=== PATIENT | female | born 1980 | race Caucasian/White ===

== ENCOUNTER 2018-02-08 12:49 | Emergency (ER) | payer MEDICAID ==
[~2018-02-08] VITALS: Ht 172.7 cm; Wt 70.5 kg
[2018-02-08] MEDS ORDERED: normal saline 1000ML IV soln IVB ONE (14:45)
[2018-02-08] MEDS ORDERED: ketorolac tromethamine 15mg/ml inj. IV ONE (14:45)
[2018-02-08] MEDS ORDERED: morphine 4 MG/ML inj SYRINge IV ONE (14:45)
[2018-02-08] MEDS ORDERED: CYCL-1 PO (15:54)
[2018-02-08 16:09] VITALS: BP 106/55
== END 2018-02-08 16:11 | disposition home or self-care (01) ==
LOC: ER 12:50
DX: M79.605 Pain in left leg (principal); F12.90 Cannabis use, unspecified, uncomplicated; Z87.891 Personal history of nicotine dependence
CPT/HCPCS: 93971; 96374; 96375; 99284; J1885; J2270; J7030

== ENCOUNTER 2018-08-22 01:07 | Emergency (ER) | payer MEDICAID ==
[~2018-08-22] VITALS: Ht 172.7 cm; Wt 80.0 kg
[~2018-08-22 01:07] MED LIST: CYCL-1 PO
[2018-08-22] MEDS ORDERED: LIDOcaine 1%/PF 5ML 10 MG/ML VIAL IJ ONE (02:00)
[2018-08-22] MEDS ORDERED: triamcinolone acetonide 40mg/ml inj IJ ONE (02:00)
--- NOTE | 2018-08-22 03:39 | NUR ---
Pt walking to xray with tech
[2018-08-22 03:57] LABS: URINE AMPHETAMINE SCREEN POSITIVE (Neg); URINE BARBITUATE SCREEN NEGATIVE (Neg); URINE BENZODIAZEPINES SCREEN NEGATIVE (Neg); URINE CANNABINOID SCREEN POSITIVE (Neg); URINE COCAINE SCREEN NEGATIVE (Neg); URINE METHADONE SCREEN NEGATIVE (Neg); URINE OPIATE SCREEN POSITIVE (Neg); URINE PHENCYCLIDINE SCREEN NEGATIVE (Neg)
[2018-08-22 04:40] VITALS: BP 136/76
== END 2018-08-22 05:17 | disposition home or self-care (01) ==
LOC: ER 01:08
DX: M25.512 Pain in left shoulder (principal); F12.90 Cannabis use, unspecified, uncomplicated
CPT/HCPCS: 20611; 73030; 80305; 93971; 99284; J2001; J3301; 20610

== ENCOUNTER 2019-05-10 19:31 | Emergency (ER) | payer MEDICAID ==
[~2019-05-10] VITALS: Ht 172.7 cm; Wt 79.5 kg
[2019-05-10] MEDS ORDERED: normal saline 1000ML IV soln IVB ONE (20:20)
[2019-05-10 20:23] LABS: CLARITY,URINE SLIGHTLY CLOUDY (Clear); COLOR,URINE YELLOW (Yellow); GLUCOSE, URINE NEGATIVE (Neg); KETONES,URINE TRACE mg/dl (Neg); LEUKOCYTE ESTERASE ,URINE SMALL (Neg); NITRITES, URINE NEGATIVE (Neg); OCCULT BLOOD,URINE LARGE (Neg); PH,URINE 7.5 (4.8-8.0); PROTEIN,URINE NEGATIVE (Neg); UROBILINOGEN,URINE 0.2 E.U/dL (0.2-1.0)
[2019-05-10] MEDS ORDERED: ondansetron/PF 4mg/2ml inj IV ONE (20:25)
[2019-05-10] MEDS ORDERED: ketorolac trometh. 30mg/ml inj. IV ONE (20:25)
[2019-05-10 20:26] LABS: UA COLLECTION TYPE CLN CATCH MIDSTREAM
[2019-05-10 20:26] LABS: BASOPHILS % (AUTO) 0.2 % (0-1); EOSINOPHILS % (AUTO) 0.2 % (0-6); HEMATOCRIT 39.2 % (35.0-45.0); HEMOGLOBIN 13.9 g/dl (12.0-16.0); LYMPHOCYTES # (AUTO) 0.6 X10'3 (1.1-4.8); MEAN CORPUSCULAR HEMOGLOBIN 35.2 PG (27.0-31.0); MEAN CORPUSCULAR HGB CONC 35.5 g/dL (33.0-36.5); MEAN CORPUSCULAR VOLUME 99.2 FL (78-98); MEAN PLATELET VOLUME 7.9 FL (7.4-10.4); NEUTROPHILS # (AUTO) 14.4 X10'3 (1.8-7.7); NEUTROPHILS % (AUTO) 89.6 % (42-75); PLATELET COUNT 237 X10'3 (140-440); RED BLOOD COUNT 3.95 X10'6 (4.20-5.60); RED CELL DISTRIBUTION WIDTH 12.7 % (11.5-14.5); WHITE BLOOD COUNT 16.1 X10'3 (4.5-11.0)
[2019-05-10 20:30] LABS: BACTERIA,URINE FEW /HPF (Neg); RBC,URINE NONE SEEN /HPF (0-2)
[2019-05-10 20:31] LABS: SQUAMOUS EPITHELIAL CELL,UR FEW /LPF (FEW); TRICHOMONAS,URINE MOD /HPF (NEGATIVE)
[2019-05-10 20:35] LABS: ALANINE AMINOTRANSFERASE 18 U/L (12-78); ALBUMIN 3.5 G/DL (3.4-5.0); ALBUMIN/GLOBULIN RATIO 0.8 (1.1-1.5); ALKALINE PHOSPHATASE 80 IU/L (46-116); ANION GAP 9 (8-16); ASPARTATE AMINO TRANSFERASE 11 U/L (10-37); BILIRUBIN,TOTAL 1.4 MG/DL (0.1-1.0); BLOOD UREA NITROGEN 7 MG/DL (7-18); BUN/CREATININE RATIO 9.7 (6.6-38.0); CALCIUM 8.9 MG/DL (8.5-10.1); CHLORIDE 99 MMOL/L (99-107); CREATININE 0.72 MG/DL (0.40-0.90); GLUCOSE 137 MG/DL (70-104); POTASSIUM 3.7 MMOL/L (3.5-5.1); SODIUM 137 MMOL/L (135-145); TOTAL CARBON DIOXIDE 28.8 MMOL/L (24-32); TOTAL PROTEIN 7.7 G/DL (6.4-8.2); eGFR > 90 ML/MIN
[2019-05-10 20:36] LABS: URINE AMPHETAMINE SCREEN POSITIVE (Neg); URINE BARBITUATE SCREEN NEGATIVE (Neg); URINE BENZODIAZEPINES SCREEN NEGATIVE (Neg); URINE CANNABINOID SCREEN POSITIVE (Neg); URINE COCAINE SCREEN NEGATIVE (Neg); URINE METHADONE SCREEN NEGATIVE (Neg); URINE OPIATE SCREEN NEGATIVE (Neg); URINE PHENCYCLIDINE SCREEN NEGATIVE (Neg)
[2019-05-10] MEDS ORDERED: CefTRIAXone/D5W-Rocephin 1gm 50 ML IV ONE (20:45)
[2019-05-10] MEDS ORDERED: CIPR-230 PO (21:48)
[2019-05-10 22:01] VITALS: BP 98/50
== END 2019-05-10 22:03 | disposition home or self-care (01) ==
LOC: ER 19:33
DX: N39.0 Urinary tract infection, site not specified (principal); F12.90 Cannabis use, unspecified, uncomplicated
CPT/HCPCS: 36415; 74176; 80053; 80305; 81001; 83605; 84145; 85025; 87040; 87088; 96365; 96375; 99284; J0696; J1885; J2405; J7030

== ENCOUNTER 2024-02-03 16:34 | Emergency (ER) | payer MEDICAID ==
[~2024-02-03] VITALS: Ht 172.7 cm; Wt 86.6 kg
[2024-02-03] MEDS: morphine 4 MG/ML inj SYRINge IV ONE ×2 (17:36→18:00)
[2024-02-03] MEDS: ketorolac trometh. 30mg/ml inj. IV ONE (18:00)
[2024-02-03 18:18] LABS: BASOPHILS % (AUTO) 0.2 % (0-1); EOSINOPHILS # (AUTO) 0.1 X10'3 (0-0.9); EOSINOPHILS % (AUTO) 1.1 % (0-6); HEMATOCRIT 39.8 % (35.0-45.0); HEMOGLOBIN 13.8 g/dl (12.0-16.0); LYMPHOCYTES # (AUTO) 0.8 X10'3 (1.1-4.8); LYMPHOCYTES % (AUTO) 7.4 % (21-51); MEAN CORPUSCULAR HEMOGLOBIN 33.3 PG (27.0-31.0); MEAN CORPUSCULAR HGB CONC 34.6 g/dL (33.0-36.5); MEAN CORPUSCULAR VOLUME 96.4 FL (78-98); MEAN PLATELET VOLUME 8.4 FL (7.4-10.4); MONOCYTES # (AUTO) 0.7 X10'3 (0-0.9); MONOCYTES % (AUTO) 6.3 % (2-12); NEUTROPHILS # (AUTO) 9.7 X10'3 (1.8-7.7); PLATELET COUNT 227 X10'3 (140-440); RED BLOOD COUNT 4.13 X10'6 (4.20-5.60); RED CELL DISTRIBUTION WIDTH 12.8 % (11.5-14.5); WHITE BLOOD COUNT 11.5 X10'3 (4.5-11.0)
[2024-02-03 18:24] LABS: BILIRUBIN,URINE NEGATIVE (Neg); CLARITY,URINE CLEAR (Clear); COLOR,URINE YELLOW (Yellow); GLUCOSE, URINE NEGATIVE (Neg); KETONES,URINE TRACE mg/dl (Neg); LEUKOCYTE ESTERASE ,URINE NEGATIVE (Neg); NITRITES, URINE NEGATIVE (Neg); OCCULT BLOOD,URINE NEGATIVE (Neg); PROTEIN,URINE NEGATIVE (Neg); UROBILINOGEN,URINE 0.2 E.U/dL (0.2-1.0)
[2024-02-03 18:32] LABS: UA COLLECTION TYPE NON-SPECIFIED
[2024-02-03] MEDS: amox tr/potassium clavulanate 875/125mg TAB PO ONE (19:46)
[2024-02-03] MEDS: TETanus/Pertussis (Acell)/Diphther VAC/PF (Tdap-Adult) 0.5ml syringe IMVAC ONE (19:47)
[2024-02-03] MEDS ORDERED: OXYC-658 PO (20:03)
[2024-02-03] MEDS ORDERED: AMOX-580 PO (20:05)
[2024-02-03 20:24] VITALS: BP 117/58; PULSE 96; RESP 19; TEMP 97.5; O2SAT 99
== END 2024-02-03 20:32 | disposition home or self-care (01) ==
LOC: ER 16:35
DX: S52.122A Displaced fracture of head of left radius, initial encounter for closed fracture (principal); S02.32XA Fracture of orbital floor, left side, initial encounter for closed fracture; S00.212A Abrasion of left eyelid and periocular area, initial encounter; F12.90 Cannabis use, unspecified, uncomplicated; F19.90 Other psychoactive substance use, unspecified, uncomplicated; Z79.899 Other long term (current) drug therapy; V94.0XXA Hitting object or bottom of body of water due to fall from watercraft, initial encounter; Y93.89 Activity, other specified; Y92.89 Other specified places as the place of occurrence of the external cause; Y99.8 Other external cause status
CPT/HCPCS: 29105; 36415; 70450; 70486; 71045; 72125; 73090; 81003; 85025; 90471; 90715; 96374; 96375; 99285; J1885; J2270; A4565; A6446; A6449

== ENCOUNTER 2024-05-03 17:09 | Emergency (ER) | payer MEDICAID ==
[~2024-05-03] VITALS: Ht 172.7 cm; Wt 90.0 kg
[~2024-05-03 17:09] MED LIST changes: +OXYC-658 PO
[2024-05-03 18:25] LABS: BASOPHILS % (AUTO) 0.5 % (0-1); EOSINOPHILS # (AUTO) 0.1 X10'3 (0-0.9); HEMATOCRIT 41.4 % (35.0-45.0); HEMOGLOBIN 13.9 g/dl (12.0-16.0); LYMPHOCYTES # (AUTO) 1.2 X10'3 (1.1-4.8); LYMPHOCYTES % (AUTO) 15.8 % (21-51); MEAN CORPUSCULAR HEMOGLOBIN 35.8 PG (27.0-31.0); MEAN CORPUSCULAR HGB CONC 33.7 g/dL (33.0-36.5); MEAN CORPUSCULAR VOLUME 106.1 FL (78-98); MEAN PLATELET VOLUME 7.9 FL (7.4-10.4); MONOCYTES # (AUTO) 0.7 X10'3 (0-0.9); MONOCYTES % (AUTO) 10.1 % (2-12); NEUTROPHILS # (AUTO) 5.3 X10'3 (1.8-7.7); NEUTROPHILS % (AUTO) 71.6 % (42-75); PLATELET COUNT 208 X10'3 (140-440); RED CELL DISTRIBUTION WIDTH 15.3 % (11.5-14.5); WHITE BLOOD COUNT 7.4 X10'3 (4.5-11.0)
[2024-05-03 19:05] LABS: ALBUMIN 3.7 G/DL (3.4-5.0); ANION GAP 8 (8-16); BLOOD UREA NITROGEN 10 MG/DL (7-18); BUN/CREATININE RATIO 14.1 (10.0-20.0); CALCIUM 8.7 MG/DL (8.5-10.1); CHLORIDE 106 MMOL/L (99-107); CREATININE 0.71 MG/DL (0.40-0.90); GLUCOSE 93 MG/DL (70-104); LIPASE 35 U/L (16-77); SODIUM 136 MMOL/L (135-145); TOTAL CARBON DIOXIDE 22.4 MMOL/L (24-32); eCRCL 105 ML/MIN; eGFR > 90 ML/MIN
[2024-05-03 19:06] LABS: POTASSIUM 4.3 MMOL/L (3.5-5.1)
[2024-05-03] MEDS ORDERED: DICY20TA17 PO (20:58)
[2024-05-03] MEDS ORDERED: OMEP40CA21 PO (20:58)
[2024-05-03] MEDS: mag hydrox/Alum hydrox/simeth 30ml oral suspension PO ONE (21:10)
[2024-05-03] MEDS: LIDOcaine 2% Viscous 15ml cup MM PRN (21:10)
[2024-05-03 21:32] VITALS: BP 140/82; PULSE 95; RESP 16; TEMP 97.6; O2SAT 95
== END 2024-05-03 21:33 | disposition home or self-care (01) ==
LOC: ER 17:10
DX: K92.2 Gastrointestinal hemorrhage, unspecified (principal); K21.9 Gastro-esophageal reflux disease without esophagitis; F12.90 Cannabis use, unspecified, uncomplicated; F19.90 Other psychoactive substance use, unspecified, uncomplicated; Z79.899 Other long term (current) drug therapy
CPT/HCPCS: 36415; 80048; 83690; 85025; 99283